=== PATIENT | female | born 1955 | race Caucasian/White ===

== ENCOUNTER → 2016-08-13 | Outpatient (CLI) | payer OTHER ==
--- NOTE | 2016-08-14 19:12 | ECHOF ---
ECHOCARDIOGRAM DATE OF PROCEDURE August 13, 2016 This is a two-dimensional echo with spectral Doppler, color-flow and M-mode. It was obtained in a patient with poorly controlled hypertension. Left atrial dimension is normal. Left ventricular end-diastolic dimension is normal. Left ventricular wall thickness is increased. LV systolic function is normal with ejection fraction of about 68%. Right atrium is normal. Right ventricle is normal. Aortic root dimension is normal. Mitral annulus is calcified. Mitral valve leaflets are normal with trace of mitral regurgitation. Aortic valve shows fibrocalcific changes with no stenosis or insufficiency. Tricuspid valve shows mild tricuspid regurgitation with normal estimated pulmonary artery systolic pressure of 30. Pulmonary valve shows no pulmonary insufficiency. There is no pericardial effusion. IMPRESSION 1. Normal LV systolic function with ejection fraction of 68%. 2. Mitral annulus calcification with trace of mitral regurgitation. 3. Left ventricular hypertrophy. 4. Aortic sclerosis. 5. Mild tricuspid regurgitation with normal estimated pulmonary artery systolic pressure of 30. MTDD
== END ==
LOC: IMA 12:43
PROVIDERS: ATTEND Nurse Practitioner
DX: I10 Essential (primary) hypertension (principal); I08.3 Combined rheumatic disorders of mitral, aortic and tricuspid valves
CPT/HCPCS: 93306

== ENCOUNTER 2016-09-17 21:42 | Emergency (ER) | payer OTHER ==
[~2016-09-17] VITALS: Ht 172.7 cm; Wt 120.5 kg
[2016-09-17 21:44] VITALS: Ht 172.7 cm; Wt 120.5 kg
--- NOTE | 2016-09-17 22:08 | ERPDOC ---
Departure Disposition Decision Date: Sep 17, 2016 Disposition Decision Time: 23:29 Disposition: 01 DISCHARGED HOME, SELF-CARE Impression Impression Impression: Primary Impression: Chest tightness Severity: Severe Condition: Improved Seen By: Physician only Referrals: PEPE CHAPMAN (Family) Patient Instructions: Chest Pain (ED) Problems/Meds/Labs Reviewed?: Yes Medications reviewed and manag: Yes Additional Instructions: Take Pepcid 20 mg, 2 tablets daily for one week, then as needed as of chest tightness Fill prescription and take Xanax up to 3 times daily as needed for symptoms of stress response/chest tightness Follow up with your doctor later this week or next week for review of all your medications, side effects, and your subjective sensations. Follow up care ordered?: Yes Mental Status: Alert, Oriented Scripts Famotidine (Pepcid) 20 Mg Tablet 40 MG PO DAILY, #60 TAB 0 Refills Prov: MATT JIMÉNEZ MD 09/17/16 HPI - Chest Pain General Chief Complaint: Cardiac Complaint Stated Complaint: CHEST TIGHTNESS,HIGH BP Time Seen by Provider: 21:44 Source: patient Exam Limitations: no limitations HPI - Chest Pain Initial Comments Patient has been having multiple symptoms over the past several weeks, including poor sleep that she attributes to possible sleep apnea, generalized left sided chest tightness, that has been consistent and persistent for at least 2 weeks, as well as a feeling of severe fatigue and tiredness after starting back on her blood pressure medication 2 weeks ago. Patient was evaluated yesterday by her primary physician, thought to have anxiety, and was given generic Xanax, but she did not fill it. Earlier in the day today results were called to her and she found out she had low sodium and low potassium. Patient presents tonight, because she is fearful of having a heart attack, and simply doesn't feel right. Occurred At: home Onset/Timing: Gradual Quality: tightness Chest Pain Radiation: no radiation Nitro Today/Relief: no nitro taken today Aspirin Treatment Today: unknown Prior Chest Pain/Cardiac Jamie: non-cardiac Hx of Similar Symptoms: Yes Allergies: Coded Allergies: No Known Allergies (Unverified , 11/01/11) Past History Past Medical History Metabolic: hypertension Vaccines Hx Tetanus, Diptheria, Pertuss: Yes (11/01/11) Review of Systems Constitutional Constitutional: fatigue, DENIES: anorexia, appetite decrease, appetite increase , chills, dizziness, fever, night sweats, syncope, weakness ENMT Ears: DENIES: pain Hearing: DENIES: hearing loss, tinnitus Balance: DENIES: vertigo Mouth/Throat: DENIES: change in swallowing, change in voice, hoarsness, painful swallowing, sore throat Cardiovascular Cardiac: chest pain Rhythm/Rate: DENIES: irregular beat, palpitations, tachycardia Vascular: DENIES: pedal edema Pulmonary Respiratory: DENIES: cough, dyspnea, pleuritic chest pain GI Upper Abdomen: DENIES: dysphagia, heartburn/indigestion, nausea, pain, vomiting Lower Abdomen: DENIES: blood in stool, constipation, diarrhea, pain General: DENIES: burning, dysuria, frequency, pain, urgency Musculoskeletal General: DENIES: cramps, joint pain, joint swelling, pain, weakness Integumentary Skin: DENIES: rash, sores Neurological General: DENIES: headache, numbness, tingling, vertigo, weakness Psychiatric Comments heightened anxiety Physical Exam General General Nourishment: well nourished, well developed, appears stated age, obese General Body Habitus: well groomed Vitals and Pain First Documented Vital Signs Date Time Temp Pulse Resp B/P Pulse Ox O2 Delivery O2 Flow Rate FiO2 09/17/16 21:44 98.2 74 20 211/99 99 Room Air Weight: Kilograms: 120.500 Height (feet): 5 Height (inches): 8.00 Triage Pain Scale: RN VS reviewed by Provider: Yes Comments Pt appears moderately anxious with flight of ideas Normal Exams: Head: Normocephalic w/o trauma Fundi: Disks flat and sharp, No hemorrhages, or AV nicking noted ENMT: No facial trauma, nasal exudates, pharyngeal erythema, or exudates are noted Neck: Full range of motion, without adenopathy, JVD, bruits or thyromegaly Chest/Resp: Clear all mosley, with good airflow, and symmetry bilaterally CV: Regular rate and rhythm, without murmur or gallop, Pulses 2+ all extremities, capillary refill, <2 seconds all ext., no pedal edema noted Abdomen: Bowel sounds positive, soft, non-tender, non-distended, no hepatosplenomegaly, masses or bruits noted Lymphatic: No lymphadenopathy, or lymphedema noted Musculoskeletal: No tenderness, or deformity noted, good range of motion, all extremities Integumentary: No rashes, hives, or bruising noted, hair and nails, without abnormality Neurologic: Patient is alert, and oriented, cranial nerves, motor/sensory/ cerebellar, exams w/o gross deficits, to observation Psychiatric: Patient exhibits, appropriate attention, emotion and affect Progress Results/Orders Orders Procedure Category Date Status Time Iv Lock (Ed Only) EDM 09/17/16 Transmitted 22:02 Cbc W/Auto LAB 09/17/16 Complete Diff-Reflex Manual Cmp - Comprehensive LAB 09/17/16 Complete Metabolic EKG EKG 09/17/16 Taken Troponin I W LAB 09/17/16 Complete Hemolysis Index Lorazepam (Ativan) PHA 09/17/16 Complete 22:15 Ranitidine (Zantac) PHA 09/17/16 Complete 22:15 Lab Results Laboratory Tests Test 09/17/16 22:00 White Blood Count 5.5T/MM3 Red Blood Count 4.35M/MM3 Hemoglobin 11.7GM/DL Hematocrit 34.4% Mean Corpuscular Volume 79.1UM3 Mean Corpuscular Hemoglobin 26.9UUG Mean Corpuscular Hemoglobin Concent 34.0GM/DL RDW Standard Deviation 40.1FL Platelet Count 242T/MM3 Mean Platelet Volume 9.7UM3 Immature Granulocyte % (Auto) 0.2% Neutrophils (%) (Auto) 59.8% Lymphocytes (%) (Auto) 27.7% Monocytes (%) (Auto) 11.0% Eosinophils (%) (Auto) 0.9% Basophils (%) (Auto) 0.4% Absolute Immature Granulocyte (auto 0.01T/MM3 Absolute Neutrophils (auto) 3.3T/MM3 Absolute Lymphocytes (auto) 1.5T/MM3 Absolute Monocytes (auto) 0.6T/MM3 Absolute Eosinophils (auto) 0.1T/MM3 Absolute Basophils (auto) 0.0T/MM3 Turbidity < 20 Sodium Level 137MEQ/L Potassium Level 3.6MEQ/L Chloride Level 95MEQ/L Carbon Dioxide Level 29MEQ/L Anion Gap 13MEQ/L Blood Urea Nitrogen 19.0MG/DL Creatinine 1.1MG/DL Glomerular Filtration Rate Calc 51 BUN/Creatinine Ratio 17RATIO Glucose Level 104MG/DL Calculated Osmolality 266MOSM/KG Calcium Level 9.5MG/DL Total Bilirubin 0.60MG/DL Icterus Index < 2 Aspartate Amino Transf (AST/SGOT) 31U/L Alanine Aminotransferase (ALT/SGPT) 32U/L Alkaline Phosphatase 76U/L Troponin I < 0.012ng/ml Total Protein 7.0G/DL Albumin 3.9G/DL Globulin 3.1G/DL Albumin/Globulin Ratio 1.3RATIO Chemistry Specimen Hemolysis < 15 Medications Current ED Medications Lorazepam (Ativan) 1 mg O ONCE IV Last administered on 09/17/16 22:46; Start 09/17/16 at 22:15; Stop 09/17/16 at 22:16; Status DC Ranitidine HCl (Zantac) 300 mg O ONCE PO Last administered on 09/17/16 22:46 ; Start 09/17/16 at 22:15; Stop 09/17/16 at 22:16; Status DC Progress Progress EKG shows normal sinus rhythm without ischemia, or infarction patient does have one unifocal PVC CBC - n CMP - n Troponin - n Patient given Zantac 300 mg and Ativan 1 mg IV After extensive conversation involving the conceivable aspect of her care patient is feeling much better, is dismissed with prescription for short-term use of Pepcid to take care of any possible GERD that may be affecting her, and she is encouraged to use her prescription for Xanax for short-term as needed only. She was also encouraged to follow-up with her primary care physician later this week or next week for review of all of her medications, as well as the side effects, and reevaluation of her subjective feelings. MATT JIMÉNEZ MD Sep 17, 2016 22:08
[2016-09-17 22:11] LABS: BASOPHILS % (AUTO) 0.4 % (0-2); EOSINOPHILS # (AUTO) 0.1 T/MM3 (0-0.5); EOSINOPHILS % (AUTO) 0.9 % (0-4); HCT - HEMATOCRIT 34.4 % (36-46); HGB - HEMOGLOBIN 11.7 GM/DL (12-16); IMMATURE GRANULOCYTE # (AUTO) 0.01 T/MM3 (0.00-0.03); IMMATURE GRANULOCYTE % (AUTO) 0.2 % (0.0-0.5); LYMPHOCYTES # (AUTO) 1.5 T/MM3 (1-4.8); LYMPHOCYTES % (AUTO) 27.7 % (23-45); MEAN CORPUSCULAR HGB 26.9 UUG (26-34); MEAN CORPUSCULAR VOLUME 79.1 UM3 (80-100); MEAN PLATELET VOLUME 9.7 UM3 (9.4-12.4); MONOCYTES # (AUTO) 0.6 T/MM3 (0-0.8); NEUTROPHILS #(AUTO)-ABSOLUTE 3.3 T/MM3 (1.8-7.7); NEUTROPHILS % (AUTO) 59.8 % (33-66); RED BLOOD COUNT 4.35 M/MM3 (4.00-5.20); WBC - WHITE BLOOD COUNT 5.5 T/MM3 (4.5-11.0)
[2016-09-17] MEDS ORDERED: RANITIDINE 150 MG TABLET PO ONE (22:15)
[2016-09-17] MEDS ORDERED: LORAZEPAM 2 MG/ML INJECTION IV ONE (22:15)
[2016-09-17 22:16] LABS: ALBUMIN 3.9 G/DL (3.5-5.0); ALBUMIN/GLOBULIN RATIO 1.3 RATIO (1.1-2.2); ALKALINE PHOSPHATASE 76 U/L (38-126); ALT (SGPT) 32 U/L (9-52); ANION GAP 13 MEQ/L (5-15); AST (SGOT) 31 U/L (14-36); BUN/CREATININE RATIO 17 RATIO (6-26); CALCIUM 9.5 MG/DL (8.4-10.2); CHLORIDE 95 MEQ/L (98-107); CO2 - CARBON DIOXIDE 29 MEQ/L (22-30); CREATININE 1.1 MG/DL (0.7-1.2); GLOMERULAR FILTRATION RATE 51; GLUCOSE 104 MG/DL (65-110); POTASSIUM 3.6 MEQ/L (3.6-5); SODIUM 137 MEQ/L (134-144)
--- NOTE | 2016-09-17 22:45 | NUR ---
PHYSICIAN DR JIMÉNEZ IN WITH PT
[2016-09-17] MEDS ORDERED: BENA20TA3 PO (22:51)
[2016-09-17] MEDS ORDERED: CARV6.252 PO (22:51)
[2016-09-17] MEDS ORDERED: DILT120T PO (22:51)
[2016-09-17] MEDS ORDERED: CHLO25TA2 PO (22:51)
[2016-09-17] MEDS ORDERED: FAMO-137 PO (23:31)
[2016-09-17 23:46] VITALS: BP 186/87; PULSE 66; RESP 13; TEMP 98.2; O2SAT 96
== END 2016-09-17 23:46 | disposition home or self-care (01) ==
LOC: ED 21:42
DX: R07.89 Other chest pain (principal); R53.83 Other fatigue
CPT/HCPCS: 80053; 84484; 85025; 93005; 96374; 99284; J2060